=== PATIENT | female | born 1980 | race American Indian/Alaskan Native ===

== ENCOUNTER 2018-02-25 08:00 | Inpatient (IN) | payer MEDICAID ==
[2018-02-25] MEDS ORDERED: ZOFRAN IV PRN ×2 (08:36→13:12)
[2018-02-25] MEDS ORDERED: TORADOL IV PRN (08:36)
[2018-02-25] MEDS ORDERED: DEMEROL IV PRN (08:36)
--- NOTE | 2018-02-25 08:36 | Anesthesia Day of Surgery ---
Anesthesia Day of Surgery - Day of Surgery Patient Examined: Yes Patient H&P Reviewed: Yes Patient is NPO: Yes
--- NOTE | 2018-02-25 08:36 | Anesthesia Consultation ---
Anesthesia Consult and Med Hx Date of service: 02/25/18 - Airway Anesthetic Teeth Evaluation: Good ROM Head & Neck: Adequate Mental/Hyoid Distance: Adequate Mallampati Class: Class II Intubation Access Assessment: Probably Good - Pulmonary Exam CTA: Yes - Cardiac Exam Cardiac Exam: RRR - Pre-Operative Health Status ASA Pre-Surgery Classification: ASA3 Proposed Anesthetic Plan: General (scop patch placed behind right ear) - Pulmonary Hx Sleep Apnea: Yes - Central Nervous System Hx Psychiatric Problems: No - Other Systems Hx Alcohol Use: Yes (OCCA) Hx Substance Use: No Hx Cancer: No Hx Obesity: Yes
[2018-02-25] MEDS: LACTATED RINGERS 1,000 ML IV SCH ×2 (12:53→22:44)
[2018-02-25] MEDS ORDERED: PEPCID IV NR (13:00)
[2018-02-25] MEDS ORDERED: ANCEF/STERILE WATER 2 GM/20 ML IV NR (13:00)
[2018-02-25] MEDS ORDERED: FLAGYL 500 MG/100 ML 500 MG/100 ML BAG IV NR ×2 (13:00→14:00)
[2018-02-25] MEDS ORDERED: VERSED IV NR (13:00)
[2018-02-25] MEDS ORDERED: APRESOLINE IV PRN (13:12)
[2018-02-25] MEDS ORDERED: MORPHINE IV PRN (13:12)
[2018-02-25] MEDS ORDERED: MYLICON PO PRN (13:12)
[2018-02-25] MEDS ORDERED: NORCO PO PRN (13:12)
[2018-02-25 13:30] LABS: Bacteria,Urine 1+ /HPF (Negative); Bilirubin,Urine NEG (Negative); Blood,Urine NEG (Negative); Color,Urine Yellow (Yellow); Mucus,Urine FEW /HPF; Protein,Urine <15 mg/dL mg/dL (Negative); Urobilinogen,Urine < 2.0 mg/dL (<2.0)
[2018-02-25] MEDS ORDERED: ANCEF/STERILE WATER 2 GM/20 ML 2 GM/20 ML SYRINGE IV NR (14:00)
[2018-02-25] MEDS ORDERED: LACTATED RINGERS 1,000 ML IV SCH (14:00)
[2018-02-25] MEDS ORDERED: LOVENOX SUB-Q NR (14:00)
[2018-02-25] MEDS ORDERED: TRANSDERM-SCOP TD SCH (14:00)
[2018-02-25] MEDS ORDERED: XYLOCAINE 2% INFILTRATI ONE (14:33)
[2018-02-25] MEDS ORDERED: MARCAINE-EPI 0.5%-1:200,000 INFILTRATI ONE ×4 (14:33→16:52)
[2018-02-25] MEDS ORDERED: XYLOCAINE 1% 20 mL ONE ×2 (14:34→16:25)
[2018-02-25] MEDS ORDERED: SUBLIMAZE ONE ×2 (14:57→16:17)
[2018-02-25] MEDS ORDERED: ZEMURON IV ONE ×3 (14:57→17:21)
[2018-02-25] MEDS ORDERED: DIPRIVAN 10 MG/ML IV ONE ×2 (14:58→16:14)
[2018-02-25] MEDS ORDERED: XYLOCAINE MPF 2% ONE (16:17)
[2018-02-25] MEDS ORDERED: XYLOCAINE 1% 20 mL INFILTRATI ONE (16:53)
[2018-02-25] MEDS ORDERED: DECADRON ONE (17:02)
[2018-02-25] MEDS ORDERED: ROBINUL ONE (17:03)
[2018-02-25] MEDS ORDERED: ZOFRAN ONE (17:32)
--- NOTE | 2018-02-25 17:40 | Operative Report ---
Operative Report Operative Report: DATE OF PROCEDURE 02/25/18 PREOPERATIVE DIAGNOSES: Morbid obesity POSTOPERATIVE DIAGNOSES:same SURGEON: oJhn Beckett MD CDC ASSOCIATE: Juaquin Fuentes MD, Edgar Daley CSA PROCEDURE: 1. Laparoscopic sleeve gastrectomy 2. Laparoscopic hiatal hernia repair ANESTHESIA: General. ESTIMATED BLOOD LOSS: less than 5 mL. COMPLICATIONS: None. SPECIMEN: Partial gastrectomy. FINDINGS:1.Small hiatal hernia INDICATION FOR PROCEDURE: Patient is37 year-old female with a long-standing history of morbid obesity refractory to diet and exercise. She has gone through the bariatricsurgeryprogram and wishes for an operation. The risks, complications, and alternatives were explained to the patient, informed consent was obtained. PROCEDURE IN DETAIL: The patient was taken to the operating room where she was placed in the supine position. She was given preoperativeantibiotics and DVT prophylaxis, and thenprepped and draped in the usual sterile fashion. After a time-out was called, a stab incision was made in the at the base of the umbilicus and a veress needle was inserted with insufflation to 18 mmHg. The incision was widened and a 15mm trocar was inserted. There was no injury at the site of the veress needle. Additional 5-mm ports were placed in the right quadrant, subxiphoid, and left quadrant after injection of local analgesia.A liver retractor was inserted through the subxiphoid port and the patient was positioned in steep reverse Trendelenburg. The right and left crura were skeletonized,accentuating a small hiatal hernia. The GE juction was noted below the level of the diaphragm. An anterior cruraplasty was performed with U- stitch0 ethibond suture with the Endostich to reapproximate the crura. The angle of His andfunguswere dissected free.The pylorus was visualized and the stomach measured 6cm from the pylorus. A LigaSure was used to enter the lesser sac, dividing the omentum and the short gastrics all the way up to the left feroz.Anesthesia passed down a 40 F bougie along the lesser curvature of the stomach. A gastric sleeve was created using several stapler loads. There was no twist or torsion noted of the sleeve. The bougie was removed. Hemostasis was obtained along the staple line after decrease of insufflation pressures. The gastric remnant was then removed via the 15-mm umbilcal port.The abdomen was desulfflated and all ports were removed.The fascia was closed with a #1 PDS in a running fashion. The incisions were closed with 4-0 Monocryl, dressed with steristrips, gauze and tape. Counts were correct. Patient tolerated the procedure well and was transferred to recovery room in stable condition.
[2018-02-25] MEDS: DILAUDID IV PRN ×3 (18:15→20:40)
[2018-02-25] MEDS: REGLAN IV PRN (20:40)
[2018-02-26] MEDS: DILAUDID IV PRN ×2 (02:08→06:36)
[2018-02-26] MEDS: REGLAN IV PRN (06:37)
--- NOTE | 2018-02-26 06:54 | Progress Note ---
Assessment and Plan 37F MO s/p lap sleeve 02/25 #1 s/p LS - pain control - encourage ambulation - IS use - bariatric CLD - education given Dispo: home today Subjective Date of service: 02/26/18 Principal diagnosis: MO Interval history: no acute events Objective - Constitutional Vitals: Vital Signs - 12hr 02/25/18 02/25/18 02/25/18 19:00 19:15 19:45 Temperature Pulse Rate Respiratory 14 15 20 Rate Blood Pressure 148/76 141/76 132/72 O2 Sat by Pulse 100 99 98 Oximetry 02/25/18 02/26/18 02/26/18 21:24 00:00 04:31 Temperature 97.7 F 98.4 F 98.5 F Pulse Rate 55 L 54 L 60 Respiratory 20 18 18 Rate Blood Pressure 125/67 132/71 125/69 O2 Sat by Pulse 91 98 93 Oximetry General appearance: Present: no acute distress, well-nourished - Respiratory Respiratory effort: normal Respiratory: bilateral: CTA - Cardiovascular Rhythm: regular Heart Sounds: Present: S1 & S2. Absent: gallop, rub Extremities: pulses intact, No edema, normal color, Full ROM - Gastrointestinal General gastrointestinal: Present: soft, non-distended, other (minimally tender ; bandages c/d/i)
--- NOTE | 2018-02-26 07:07 | Discharge Summary ---
Providers - Providers Date of Admission: 02/25/18 10:45 Date of discharge: 02/26/18 Attending physician: HALINA SALMERON Primary care physician: CATH LAB MANAGER Hospitalization Reason for admission: postop care Condition: Good Procedures: 02/25: Lap gastric sleeve Hospital course: 37F admitted after her operation for routine monitoring. Unremarkable postop course. Pain was controlled and she tolerated a diet. She was discharged home the next day. Disposition: DC-01 TO HOME OR SELFCARE Core Measure Documentation - Palliative Care Palliative Care/ Comfort Measures: Not Applicable - Core Measures Any of the following diagnoses?: none - VTE Discharge Requirements Deep Vein Thrombosis/Pulmonary Embolism Present on Admission: No - Acute MD Discharge Requirements Aspirin at discharge: No Reason for no aspirin on DC: Surgical contraindication - Heart Failure Discharge Requirements EKATERINA/ARB for LVSD if EF <40%: Not Applicable - Stroke Discharge Requirements Statin for LDL = or >70 mg/dl on DC: Not Applicable Exam - Physical Exam Narrative exam: NAD Abd soft, ND, minimally tender, bandages c/d/i - Constitutional Vitals: Temp Pulse Resp BP Pulse Ox 98.5 F 60 18 125/69 93 02/26/18 04:31 02/26/18 04:31 02/26/18 04:31 02/26/18 04:31 02/26/18 04:31 Plan Follow up with: ANGELES SALINAS MD [Primary Care Provider] - 7 Days HALINA SALMERON MD [Staff Physician] - 14 Days (as scheduled; please call office to check on wellness appt (should be in 2-3 days))
[2018-02-26] MEDS ORDERED: LOVENOX SUB-Q SCH (10:00)
[2018-02-26 11:18] LABS: Basophils % (Auto) 0.2 % (0.0-1.8); Eosinophils % (Auto) 0.1 % (0.0-4.3); Hematocrit 33.2 % (30.3-42.9); Lymphocytes # (Auto) 1.7 K/mm3 (1.2-5.4); Mean Corpuscular HGB Conc 33 % (30-34); Mean Corpuscular Hemoglobin 27 pg (28-32); Mean Corpuscular Volume 82 fl (79-97); Monocytes # (Auto) 0.7 K/mm3 (0.0-0.8); Monocytes % (Auto) 7.8 % (0.0-7.3); Platelet Count 287 K/mm3 (140-440); Red Blood Count 4.06 M/mm3 (3.65-5.03); Red Cell Distribution Width 15.4 % (13.2-15.2)
[2018-02-26 11:19] VITALS: BP 136/86
[2018-02-26 11:40] LABS: Alanine Aminotransferase 15 units/L (7-56); Albumin 3.3 g/dL (3.9-5); BUN/Creatinine Ratio 9; Blood Urea Nitrogen 6 mg/dL (7-17); Calcium 8.6 mg/dL (8.4-10.2); Hemolysis Index 4
== END 2018-02-26 15:30 | disposition home or self-care (01) | DRG 327 ==
LOC: 3A 10:45 → 3B-SURG 18:25
PROVIDERS: ADMIT Specialist; ATTEND Specialist
PROC: 0DB64Z3 Excision of Stomach, Percutaneous Endoscopic Approach, Vertical (ICD-10-PCS; principal; 2018-02-25)
PROC: 0BQT4ZZ Repair Diaphragm, Percutaneous Endoscopic Approach (ICD-10-PCS; 2018-02-25)
DX: K44.9 Diaphragmatic hernia without obstruction or gangrene (principal); Z68.42 Body mass index [BMI] 45.0-49.9, adult; E66.01 Morbid (severe) obesity due to excess calories; G47.30 Sleep apnea, unspecified; Z90.49 Acquired absence of other specified parts of digestive tract; Z71.3 Dietary counseling and surveillance; Z72.89 Other problems related to lifestyle
CPT/HCPCS: 36415; 80053; 81001; 81025; 85025; 88307; J0690; J1100; J1170; J1650; J2250; J2270; J2405; J2704; J2765; J3010; J7120